=== PATIENT | female | born 1985 | race Caucasian/White ===

== ENCOUNTER 2017-03-15 12:33 | Emergency (ER) | payer BC ==
[~2017-03-15] VITALS: Ht 175.3 cm; Wt 74.2 kg
[~2017-03-15 12:33] MED LIST: TOBRADEX 2.5 ML OP; WELLBUTRIN SR150 MG PO; [UNRECOGNIZED DRUG - OTHER] PO
[2017-03-15] MEDS ORDERED: NORCO1 TA1 PO (14:57)
[2017-03-15 15:11] VITALS: BP 117/55
== END 2017-03-15 15:11 | disposition home or self-care (01) | DRG 605 ==
LOC: ED 12:33
DX: S20.211A Contusion of right front wall of thorax, initial encounter (principal); S96.912A Strain of unspecified muscle and tendon at ankle and foot level, left foot, initial encounter; S10.93XA Contusion of unspecified part of neck, initial encounter; S90.02XA Contusion of left ankle, initial encounter; S16.1XXA Strain of muscle, fascia and tendon at neck level, initial encounter; S29.011A Strain of muscle and tendon of front wall of thorax, initial encounter; W51.XXXA Accidental striking against or bumped into by another person, initial encounter; Y93.52 Activity, horseback riding; Y92.39 Other specified sports and athletic area as the place of occurrence of the external cause

== ENCOUNTER 2019-03-13 20:32 | Emergency (ER) | payer BC ==
[~2019-03-13] VITALS: Ht 172.7 cm; Wt 87.7 kg
[~2019-03-13 20:32] MED LIST changes: +NORCO1 TA1 PO
[2019-03-13 21:21] LABS: HEMOGLOBIN 14.5 g/dl (12.0-16.0); IMMATURE GRANULOCYTES 0.4 % (0.0-5.0); MEAN CELL VOLUME 97.8 fL CALC (80.0-100.0); MEAN CORPUSCULAR HGB 32.2 pG CALC (26.0-32.0); NEUT# 5.4 thou/uL (2.00-7.15); RED BLOOD COUNT 4.5 mill/uL (4.20-5.60); RED CELL DISTRI WIDTH 14.2 % (11.5-15.5)
[2019-03-13 21:23] LABS: URINE BLOOD DIPSTICK SMALL (NEGATIVE); URINE COLOR YELLOW; URINE GLUCOSE - DIPSTICK NEGATIVE (NEGATIVE); URINE KETONE NEGATIVE (NEGATIVE); URINE LEUK ESTERASE NEGATIVE (NEGATIVE); URINE NITRITE - DIPSTICK NEGATIVE (Negative); URINE PH 7.5 (4.5-8.0); URINE PROTEIN - DIPSTICK NEGATIVE (NEG-TRACE); URINE SPECIFIC GRAVITY 1.015
[2019-03-13 21:25] LABS: URINE BILIRUBIN - DIPSTICK NEGATIVE (NEGATIVE); URINE SQUAMOUS EPITHELIAL CELL FEW EPI/hpf (0-FEW); URINE WBC 0-2 WBC/hpf (0-5)
[2019-03-13 21:26] LABS: BARBITURATES NEGATIVE (NEGATIVE); COCAINE NEGATIVE (NEGATIVE); METHADONE NEGATIVE (NEGATIVE); OXCYCODONE NEGATIVE (NEGATIVE); TETRAHYDROCANNABIONOL NEGATIVE (NEGATIVE); TRICYLIC ANTIDEPRESSANTS NEGATIVE (NEGATIVE)
[2019-03-13 21:39] LABS: ALBUMIN 4.1 g/dL (3.2-5.0); ALKALINE PHOSPHATASE 77 u/l (38-126); AMYLASE 68 u/l (30-110); ANION GAP 12 (6-22 (CALC)); BILIRUBIN, TOTAL 0.7 mg/dL (0.0-1.4); BUN 15 mg/dL (7-17); BUN/CREATININE RATIO 20 (12-20 (CALC)); CARBON DIOXIDE 25 mmol/l (22-30); CHLORIDE 105 mmol/l (95-108); CREATININE 0.7 mg/dL (0.5-1.0); GFR > 60 ML/MIN (>=60 (CALC)); GFR FOR AFR.AMER. > 60 ML/MIN (>=60 (CALC)); LIPASE 39 u/l (23-300); POTASSIUM 3.6 mmol/l (3.5-5.1); SGOT/AST 27 u/l (14-36); SODIUM 138 mmol/l (137-146); TOTAL PROTEIN 7.2 g/dL (6.3-8.2)
[2019-03-13] MEDS ORDERED: ONDANSETRON4 MG PO (23:01)
[2019-03-13 23:10] VITALS: BP 115/76
== END 2019-03-13 23:13 | disposition home or self-care (01) | DRG 882 ==
LOC: ED 20:32
DX: F45.8 Other somatoform disorders (principal); F41.9 Anxiety disorder, unspecified; R11.2 Nausea with vomiting, unspecified; E86.0 Dehydration; R10.30 Lower abdominal pain, unspecified
CPT/HCPCS: J2060; Q9967

== ENCOUNTER 2022-03-22 14:58 | Emergency (ER) | payer BC ==
[2022-03-22] VITALS (7 sets, daily range): BP systolic 109–126; BP diastolic 62–89
[~2022-03-22] VITALS: Ht 172.7 cm; Wt 95.5 kg
[~2022-03-22 14:58] MED LIST changes: +ONDANSETRON4 MG PO
[2022-03-22 17:30] LABS: HEMOGLOBIN 14.1 g/dl (12.0-16.0); IMMATURE GRANULOCYTES 0.3 % (0.0-5.0); MEAN CELL VOLUME 100.5 fL CALC (80.0-100.0); MEAN CORPUSCULAR HGB 34.6 pG CALC (26.0-32.0); MEAN CORPUSCULAR HGB CONC 34.4 g/dL CAL (32.0-36.0); NEUT# 9.73 thou/uL (2.00-7.15); RED BLOOD COUNT 4.08 mill/uL (4.20-5.60); RED CELL DISTRI WIDTH 13.9 % (11.5-15.5)
[2022-03-22 17:34] LABS: ALBUMIN 4.7 g/dL (3.2-5.0); ALKALINE PHOSPHATASE 100 u/l (38-126); ANION GAP 13 (6-22 (CALC)); BUN 9 mg/dL (7-17); BUN/CREATININE RATIO 13 (12-20 (CALC)); CARBON DIOXIDE 22 mmol/l (22-30); CHLORIDE 104 mmol/l (95-108); CREATININE 0.7 mg/dL (0.5-1.0); GFR FOR AFR.AMER. > 60 ML/MIN (>=60 (CALC)); GFR OTHER RACES > 60 ML/MIN (>=60 (CALC)); POTASSIUM 4.1 mmol/l (3.5-5.1); SGOT/AST 37 u/l (14-36); SODIUM 135 mmol/l (137-146); TOTAL PROTEIN 7.8 g/dL (6.3-8.2)
[2022-03-22 17:36] LABS: BILIRUBIN, TOTAL 1.2 mg/dL (0.0-1.4)
[2022-03-22 19:02] LABS: URINE BILIRUBIN - DIPSTICK NEGATIVE (NEGATIVE); URINE BLOOD DIPSTICK MODERATE (NEGATIVE); URINE COLOR YELLOW; URINE GLUCOSE - DIPSTICK NEGATIVE (NEGATIVE); URINE KETONE NEGATIVE (NEGATIVE); URINE PROTEIN - DIPSTICK NEGATIVE (NEG-TRACE); URINE UROBILINOGEN - DIPSTICK 0.2 E.U./dL (0.2)
[2022-03-22] MEDS ORDERED: DICYCLOMINE HCL20 MG PO (19:04)
[2022-03-22 19:11] LABS: URINE LEUK ESTERASE MODERATE (NEGATIVE); URINE NITRITE - DIPSTICK NEGATIVE (Negative)
[2022-03-22 19:19] LABS: URINE SQUAMOUS EPITHELIAL CELL FEW EPI/hpf (0-FEW)
[2022-03-22] MEDS ORDERED: BACTRIM DS1 TAB PO (19:25)
== END 2022-03-22 19:46 | disposition home or self-care (01) | DRG 690 ==
LOC: ED 14:58
PROVIDERS: Internal Medicine
DX: N39.0 Urinary tract infection, site not specified (principal); F41.9 Anxiety disorder, unspecified

== ENCOUNTER 2022-05-18 21:53 | Emergency (ER) | payer OTHER, BC ==
[~2022-05-18] VITALS: Ht 172.7 cm; Wt 81.8 kg
[~2022-05-18 21:53] MED LIST changes: +BACTRIM DS1 TAB PO; +DICYCLOMINE HCL20 MG PO
[2022-05-18 22:12] VITALS: BP 136/90
[2022-05-18 22:15] VITALS: BP 133/88
[2022-05-18 22:31] VITALS: BP 121/82
[2022-05-18 22:35] LABS: BASO% 0.4 % (0-3); EOS% 0.6 % (0-8); HEMATOCRIT 44.6 % (37.0-47.0); HEMOGLOBIN 15.3 g/dl (12.0-16.0); IMMATURE GRANULOCYTES 0.3 % (0.0-5.0); LYMPH% 24.7 % (15-41); MEAN CELL VOLUME 100.2 fL CALC (80.0-100.0); MEAN CORPUSCULAR HGB 34.4 pG CALC (26.0-32.0); MEAN CORPUSCULAR HGB CONC 34.3 g/dL CAL (32.0-36.0); MONO% 4.7 % (2-13); NEUT# 5.43 thou/uL (2.00-7.15); NEUT% 69.3 % (42-76); RED BLOOD COUNT 4.45 mill/uL (4.20-5.60); RED CELL DISTRI WIDTH 13.6 % (11.5-15.5)
[2022-05-18 22:38] LABS: URINE BILIRUBIN - DIPSTICK NEGATIVE (NEGATIVE); URINE BLOOD DIPSTICK SMALL (NEGATIVE); URINE COLOR YELLOW; URINE GLUCOSE - DIPSTICK NEGATIVE (NEGATIVE); URINE KETONE NEGATIVE (NEGATIVE); URINE LEUK ESTERASE NEGATIVE (NEGATIVE); URINE PH 6.5 (4.5-8.0); URINE PROTEIN - DIPSTICK NEGATIVE (NEG-TRACE); URINE SPECIFIC GRAVITY 1.015; URINE UROBILINOGEN - DIPSTICK 0.2 E.U./dL (0.2)
[2022-05-18 22:41] LABS: URINE NITRITE - DIPSTICK NEGATIVE (Negative)
[2022-05-18 22:45] VITALS: BP 128/88
[2022-05-18 22:45] LABS: URINE SQUAMOUS EPITHELIAL CELL FEW EPI/hpf (0-FEW); URINE WBC 0-2 WBC/hpf (0-5)
[2022-05-18 22:48] LABS: ALBUMIN 4.8 g/dL (3.2-5.0); ALKALINE PHOSPHATASE 86 u/l (38-126); BUN 8 mg/dL (7-17); BUN/CREATININE RATIO 11 (12-20 (CALC)); CHLORIDE 105 mmol/l (95-108); CREATININE 0.8 mg/dL (0.5-1.0); ETHYL ALCOHOL 115 mg/dl (0-30); GFR FOR AFR.AMER. > 60 ML/MIN (>=60 (CALC)); GFR OTHER RACES > 60 ML/MIN (>=60 (CALC)); MAGNESIUM 2.1 mg/dL (1.6-2.3); POTASSIUM 4.8 mmol/l (3.5-5.1); SGOT/AST 46 u/l (14-36); TOTAL PROTEIN 8.2 g/dL (6.3-8.2)
[2022-05-18 22:49] LABS: ANION GAP 15 (6-22 (CALC)); BILIRUBIN, TOTAL 0.2 mg/dL (0.0-1.4); CARBON DIOXIDE 27 mmol/l (22-30); SODIUM 142 mmol/l (137-146)
[2022-05-18 22:54] VITALS: BP 128/88
== END 2022-05-18 23:07 | DRG 897 ==
LOC: ED 21:53
PROVIDERS: Family Medicine
DX: F10.129 Alcohol abuse with intoxication, unspecified (principal); Y90.5 Blood alcohol level of 100-119 mg/100 ml; V49.9XXA Car occupant (driver) (passenger) injured in unspecified traffic accident, initial encounter